=== PATIENT | female | born 1950 ===

== ENCOUNTER 2021-12-20 10:45 | Inpatient (IN) | payer OTHER ==
[~2021-12-20] VITALS: Ht 154.9 cm; Wt 46.3 kg
[2021-12-20] MEDS ORDERED: ZESTRIL10 M1 PO (12:43)
[2021-12-20] MEDS ORDERED: ATORVASTATIN CA10 MG PO (12:43)
== END 2021-12-26 15:17 | disposition home or self-care (01) | DRG 395 ==
LOC: O/R 12-25 05:06 → SURH 12-25 08:45
PROVIDERS: ADMIT Colon & Rectal Surgery; ATTEND Colon & Rectal Surgery
PROC: 0DJD8ZZ Inspection of Lower Intestinal Tract, Via Natural or Artificial Opening Endoscopic (ICD-10-PCS; 2021-12-25)
PROC: 0DBP8ZZ Excision of Rectum, Via Natural or Artificial Opening Endoscopic (ICD-10-PCS; principal; 2021-12-25 08:45)
DX: D12.8 Benign neoplasm of rectum (principal); K62.82 Dysplasia of anus; Z20.822 Contact with and (suspected) exposure to COVID-19